=== PATIENT | male | born 1985 | race Caucasian/White ===

== ENCOUNTER 2025-01-27 14:21 | Emergency (ER) | payer BC, SELFPAY ==
[2025-01-27 14:23] VITALS: BP 146/91; PULSE 110; RESP 19; TEMP 36.8; O2SAT 99; BMI 31.1
[2025-01-27 16:30] VITALS: BP 150/91; PULSE 91; RESP 18; O2SAT 100
[2025-01-27 16:33] LABS: Mucous, Urine 0 SEEN /hpf (<or=2+); Red Blood Cells-Urine 0 SEEN /hpf (0-5)
[2025-01-27 16:36] LABS: Color, Urine Straw (Yellow); Glucose, Dipstick Normal (Normal); Ketone-Dipstick Negative (Negative); Leukocyte Esterase-Dipstick Negative /ul (Negative); Nitrite-Dipstick Negative (Negative); Occult Blood-Urine Negative /ul (Negative); Protein-Dipstick Negative (Negative); Specific Gravity, Urine 1.010 (1.002-1.030); Urine Bilirubin Dipstick Negative (Negative)
[2025-01-27 16:52] LABS: Hematocrit 49.9 % (40-54); Hemoglobin 16.9 g/dL (13.0-16.5); Immature Granulocytes Count 0.020 X10^3/uL (0.0-0.0); Mean Corp Hgb Conc 33.9 g/dL (32-36); Mean Corpuscular Volume 90.9 fL (80-94); Mean Platelet Vol. 9.4 fl (6.2-12.0); NRBC Flagged by Analyzer 0 % (0-5); POSITIVE DIFFERENTIAL YES; Platelet Count 238 K/mm3 (150-450); RBC Distribution Width CV 13.0 % (11.6-14.6); RBC Distribution Width SD 43.8 fl (35.1-43.9); Red Blood Count 5.49 M/mm3 (4.6-6.2); White Blood Count 8.6 K/mm3 (4.4-11.0)
--- NOTE | 2025-01-27 16:56 | ED.VIS.GI ---
HPI HPI - GI History of Present Illness Chief Complaint: Abd Pain Informant: patient Narrative Narrative: Patient is a 39-year-old male with no segment past medical history presenting with worsening right lower quadrant abdominal pain. 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 He notes the pain started around 730 or 8 AM. Initially was in his suprapubic region but is now more in the right lower quadrant. He started have a bowel movement but is not able to have 1. Denies any nausea or vomiting but feels that he could throw up. Denies any urinary symptoms. Denies any pain going to his groin or his testicles. Has not eaten much today and therefore has not had much urine output. States the pain is constant and is fluctuate intensity. Never had any like this before. Has a history of any abdominal surgeries. States his son threw up over the weekend but he attributed to eating too much junk food and is otherwise been fine. No other sick contacts reported. No fevers reported. No other complaints or concerns at this time [facility] Medical History Depression Allergy/AdvReac Type Severity Reaction Status Date / Time No Known Allergies Allergy Verified 01/27/25 14:24 Social History Smoking Status: Never smoker ROS ROS ED Constitutional Constitutional ED: Denies chills or fever(s) Cardiovascular Cardiovascular: Denies chest pain Gastrointestinal Gastrointestinal: Reports abdominal pain; Denies constipation, diarrhea, melena, nausea or vomiting Genitourinary Genitourinary ED: Denies dysuria, hematuria or urinary frequency Musculoskeletal Musculoskeletal: Denies arthralgias, back pain or myalgias Integumentary Denies rash Hematologic/Lymphatic Hematologic/Lymphatic: Denies easy bleeding or easy bruising EXAM Physical Exam Const Vital Signs: 01/27/25 14:23 01/27/25 16:30 01/27/25 18:12 Temperature 98.3 F Temperature Source Oral Pulse Rate 110 H 91 Respiratory Rate 19 H 18 Blood Pressure 146/91 H 150/91 H 152/82 H Blood Pressure Mean 109 110 105 Pulse Ox 99 100 Oxygen Delivery Method Room Air Room Air Positive well nourished and well developed General Appearance ED: well developed and NAD; Negative for pallor HEENT Reports moist mucous membranes Eyes General Eye ED: Negative for scleral icterus Neck supple Resp normal respiratory effort and clear to auscultation bilaterally Cardio regular rate, regular rhythm and no murmurs GI non-distended Auscultation: normoactive bowel sounds Palpation: soft and tender RLQ and suprapubic; Negative for guarding, rigid, hernia or mass Back/Spine no CVA tenderness Extremity full ROM General Extremety ED: Negative for edema General Extremity: Negative for edema Neuro moves all extremities Motor Exam: general weakness Psych mental status grossly normal and thought process normal Skin no wounds General Skin Exam: Negative for jaundice or pallor MDM MDM MDM Narrative Medical decision making narrative: Patient is a 39 year old male presenting with lower abdominal pain that started today. It is more in the suprapubic/right lower quadrant. No fevers reported. Came in for further evaluation. No history of any abdominal surgeries. Differential includes not limited to acute appendicitis, renal colic, urinary tract infection, pyelonephritis, small bowel obstruction, diverticulitis and colitis. CBC, CMP, lipase and urinalysis largely unremarkable. CT of the abdomen pelvis does not show any acute process to explain his symptoms. There is scattered subcentimeter hypodensities throughout the liver and spleen which are nonspecific and hepatomegaly to 19 centimeters. He has a borderline enlarged spleen. He does not have a monocyte predominance and lower suspicion for acute mononucleosis especially does not report any fever gland 1 day of symptoms. He does have scattered colonic diverticulosis with no acute diverticulitis. His appendix is normal. Patient is informed that his workup is largely unremarkable as far as the cause of his pain. The patient is informed of his abnormal findings on his liver and spleen and given GI follow-up for 2 days from now. Counseled that this needs further evaluation to ensure is not a more severe systemic process or even malignancy. He verbalizes agreement understand this plan. Discharged home. Counseled alternate ibuprofen and Tylenol as needed for pain. Given return precautions. Discharged home in stable and improved condition. Lab Data Attestation: I reviewed the patient's lab results. Labs: Laboratory Results - last 24 hr 01/27/25 01/27/25 16:25 16:30 WBC 8.6 RBC 5.49 Hgb 16.9 H Hct 49.9 MCV 90.9 MCH 30.8 MCHC 33.9 RDW Std Deviation 43.8 RDW Coeff of Chacorta 13.0 Plt Count 238 MPV 9.4 Immature Gran % (Auto) 0.200 Neut % (Auto) 90.4 H Lymph % (Auto) 3.5 L [place]ion % (Auto) 4.2 Eos % (Auto) 1.2 Baso % (Auto) 0.5 Absolute Neuts (auto) 7.7 Absolute Lymphs (auto) 0.30 L Nucleated RBC % 0 Sodium 137 Potassium 3.9 Chloride 101 Carbon Dioxide 23.1 Anion Gap 13 BUN 16 Creatinine 0.95 Estim Creat Clear Calc 152.24 Est GFR (MDRD) Non-Af 106 BUN/Creatinine Ratio 16.4 Glucose 89 Calcium 9.4 Total Bilirubin 0.76 AST 27 ALT 39 Alkaline Phosphatase 97 Total Protein 7.6 Albumin 4.6 Globulin 3.0 Albumin/Globulin Ratio 1.6 Lipase 17 Urine Color Straw Urine Clarity Clear Urine pH 6.0 Ur Specific Drake 1.010 Urine Protein Negative Urine Glucose (UA) Normal Urine Ketones Negative Urine Occult Blood Negative Urine Nitrite Negative Urine Bilirubin Negative Urine Urobilinogen Normal Ur Leukocyte Esterase Negative Urine RBC 0 SEEN Urine WBC 0-5 SEEN Ur Squamous Epith Cells 0-5 SEEN Urine Bacteria 1+ Urine Mucus 0 SEEN Radiography Diagnostic Testing: Clinical Impression(s) from Imaging Studies Abdomen/Pelvis CT 01/27/25 17:17 IMPRESSION: Scattered subcentimeter hypodensities throughout the liver and spleen, nonspecific. Hepatomegaly to 19 cm. Borderline enlarged spleen Colonic diverticulosis without acute diverticulitis. No bowel obstruction. Normal appendix. [id number] Dis[facility] Triage Chief Complaint: Abd Pain ED Provider: Joyce Dobbins Dx/Rx/DC Orders Clinical Impression: Abdominal pain, acute, right lower quadrant, Abnormal abdominal CT scan Instructions: ED Abdominal Pain Unkn Cause Male... Primary Care Provider: Cahty Gonzalez Referrals: Robinson Currie DO [Med Staff - Active Staff] - Cathy Gonzalez PA-C [Primary Care Provider] - Activity Restrictions/Additional Instructions: Your workup for the cause of your right lower swab transabdominal pain was inconclusive. No findings of appendicitis, urinary tract infection, kidney stones or other cause was found. At this time I feel that you are stable for outpatient follow-up. Your CT did incidentally find abnormality to your liver and spleen. You been given follow-up appointment with the GI office on January 29 at 11:30 AM. If you have worsening symptoms or further concerns in the meantime please return to the emergency room. Print Language: Greek Disposition Disposition: Home, Self Care
[2025-01-27] MEDS: 0.9% Normal Saline (1000mL) 1,000 ML 999 ML IV (16:58)
--- NOTE | 2025-01-27 17:17 | CT_ITS ---
PROCEDURE: ABDOMEN/PELVIS W IV CONT ONLY 01/27/2025 REASON FOR EXAM: RLQ ABD PAIN TECHNIQUE: Procedure Code: [id number] Modality: CT Procedure: ABDOMEN/PELVIS W IV CONT ONLY Coronal and Sagittal reconstruction series were provided. CONTRAST: 100 mL of Isovue 370 One or more dose reduction techniques were used (e.g., Automated exposure control, adjustment of the mA and/or kV according to patient size, use of iterative reconstruction technique. RADIATION DOSE SUMMARY: DLP: 1209 mGycm COMPARISON: None FINDINGS: Limited sections of the lung bases demonstrate no focal pulmonary mass or consolidations. The liver, spleen, pancreas, and both adrenal glands demonstrate no acute findings. Scattered subcentimeter hypodensities throughout the liver and spleen, nonspecific. Hepatomegaly to 19 cm. Borderline enlarged spleen The gallbladder is unremarkable. The stomach is unremarkable. The small bowel loops are not dilated. The appendix is normal. No colonic obstruction. Colonic diverticulosis without acute diverticulitis. There is no free air or significant free fluid. Scattered subcentimeter hypodensities throughout the kidney, too small to accurately characterize. No obstructive uropathy. No hydronephrosis. The urinary bladder is distended. The pelvic structures are intact. There is no solid pelvic mass. No significant lymphadenopathy. The aorta and IVC demonstrate no acute findings. Visualized osseous structures demonstrate no acute abnormality. CT/Abdomen/Pelvis W IV Cont ONLY IMPRESSION: Scattered subcentimeter hypodensities throughout the liver and spleen, nonspeci fic. Hepatomegaly to 19 cm. Borderline enlarged spleen Colonic diverticulosis without acute diverticulitis. No bowel obstruction. No rmal appendix. Reading Location: [id number]
[2025-01-27 17:28] LABS: AST(SGOT) 27 U/L (<=37); Alanine Aminotransfer ALT/SGPT 39 U/L (<=46); Albumin, Serum 4.6 g/dL (3.5-5.0); Alkaline Phosphatase 97 U/L (40-129); Anion Gap 13 (5-15); BUN 16 mg/dL (4-19); BUN/Creat Ratio 16.4 RATIO (10-20); Calcium,Total 9.4 mg/dL (7.6-11.0); Carbon Dioxide 23.1 mmol/L (21.0-32.0); Chloride 101 mmol/L (98-108); Estimated Creatinine Clearance 152.24 ml/min (50-250); Globulin 3.0 g/dL (2.2-4.2); Glucose 89 mg/dL (70-99); Lipase 17 U/L (13-75); Potassium 3.9 mmol/L (3.3-5.1)
[2025-01-27 17:48] LABS: Squamous Epithelial Cells - UA 0-5 SEEN /hpf (0-5)
[2025-01-27 18:12] VITALS: BP 152/82
[2025-01-27 20:10] VITALS: BP 146/95; PULSE 77; RESP 16; TEMP 36.6; O2SAT 98
== END 2025-01-27 20:11 | disposition home or self-care (01) ==
PROVIDERS: Emergency Provider Emergency Medicine; PCP Family Medicine; Visit Provider Emergency Medicine
DX: R10.31 Right lower quadrant pain (principal); K57.30 Diverticulosis of large intestine without perforation or abscess without bleeding; R16.2 Hepatomegaly with splenomegaly, not elsewhere classified
CPT/HCPCS: 74177; 80053; 81001; 83690; 85025; 96361; 96374; 96375; 99282; Q9967; J2405

== ENCOUNTER → 2025-02-11 | Outpatient (CLI) | payer BC, SELFPAY ==
--- NOTE | 2025-02-11 08:50 | US_ITS ---
PROCEDURE: US ABD LIMITED W/ ELASTOGRAPHY REASON FOR EXAM: HEPATOMEGALY COMPARISON: Abdominal CT 01/27/2025. TECHNIQUE: Procedure Code: [id number] Modality: US Procedure: ABD LIMITED W/ ELASTOGRAPHY Right upper quadrant abdominal ultrasound. [employer] [employer] ElastQ Imaging shear wave elastography for non-invasive assessment of liver tissue stiffness. Radha EPIQ Elite. FINDINGS: LIVER: Enlarged measuring roughly 20 cm in length. Somewhat heterogeneous parenchymal echotexture likely corresponding to the aforementioned numerous tiny hypoechoic lesions throughout the liver seen on CT, although a discrete mass lesion is not well appreciated on this exam. Elastography: EQI Med: 5.9 kPa EQI Med Yaron: 1.39 m/s IQR/Med: 17.4 %* GALLBLADDER: Normal. No stones, sludge, wall thickening or tenderness. COMMON BILE DUCT: Normal measuring up to 0.4 cm diameter. PANCREAS: Visualized portions are sonographically unremarkable. SPLEEN: Enlarged measuring 12.7 x 6.2 x 6.2 cm. Two small hypoechoic foci in the spleen, measuring up to roughly 1 cm in size, nonspecific. No right upper quadrant ascites. Visualized right kidney appears normal in size and cortical thickness, without hydronephrosis. Simple appearing right renal cyst measuring up to 1.6 cm. US/ABD Limited w/ Elastography IMPRESSION: Moderate to severe hepatic fibrosis. Metavir score F2-F3. Hepatosplenomegaly. Redemonstrated multiple indeterminate small hypoechoic les ions scattered throughout the liver and spleen, as demonstrated on previous abdominal CT. This can be seen with granulomatous dise ases, or atypical infections such as mycobacterial or fungal etiologies. Metastases or hematologic malignancy such as leukemia/lym phoma can also have this appearance. Reference Values: SRU <1.37 m/s (5.7kPa): No to mild fibrosis 1.37 m/s - 2.2 m/s: Moderate to severe fibrosis >2.2 m/s (15kPa): Significant fibrosis / cirrhosis METAVIR Score F2 or higher: 1.34 m/s (5.7kPa) F3 or higher: 1.55 m/s (7.3kPa) F4: 1.80 m/s (10kPa) * If the IQR/Med is >30%, the variance in the measurements is a large and the a ccuracy of the measurement may be in question. Reading Location: [id number]
--- NOTE | 2025-02-11 08:50 | US_ITS ---
PROCEDURE: US ABD LIMITED W/ ELASTOGRAPHY REASON FOR EXAM: HEPATOMEGALY COMPARISON: Abdominal CT 01/27/2025. TECHNIQUE: Procedure Code: [id number] Modality: US Procedure: ABD LIMITED W/ ELASTOGRAPHY Right upper quadrant abdominal ultrasound. [facility] ElastQ Imaging shear wave elastography for non-invasive assessment of liver tissue stiffness. Radha EPIQ Elite. FINDINGS: LIVER: Enlarged measuring roughly 20 cm in length. Somewhat heterogeneous parenchymal echotexture likely corresponding to the aforementioned numerous tiny hypoechoic lesions throughout the liver seen on CT, although a discrete mass lesion is not well appreciated on this exam. Elastography: EQI Med: 5.9 kPa EQI Med Yaron: 1.39 m/s IQR/Med: 17.4 %* GALLBLADDER: Normal. No stones, sludge, wall thickening or tenderness. COMMON BILE DUCT: Normal measuring up to 0.4 cm diameter. PANCREAS: Visualized portions are sonographically unremarkable. SPLEEN: Enlarged measuring 12.7 x 6.2 x 6.2 cm. Two small hypoechoic foci in the spleen, measuring up to roughly 1 cm in size, nonspecific. No right upper quadrant ascites. Visualized right kidney appears normal in size and cortical thickness, without hydronephrosis. Simple appearing right renal cyst measuring up to 1.6 cm. US/ABD Limited w/ Elastography IMPRESSION: Moderate to severe hepatic fibrosis. Metavir score F2-F3. Hepatosplenomegaly. Redemonstrated multiple indeterminate small hypoechoic les ions scattered throughout the liver and spleen, as demonstrated on previous abdominal CT. This can be seen with granulomatous dise ases, or atypical infections such as mycobacterial or fungal etiologies. Metastases or hematologic malignancy such as leukemia/lym phoma can also have this appearance. Reference Values: SRU <1.37 m/s (5.7kPa): No to mild fibrosis 1.37 m/s - 2.2 m/s: Moderate to severe fibrosis >2.2 m/s (15kPa): Significant fibrosis / cirrhosis METAVIR Score F2 or higher: 1.34 m/s (5.7kPa) F3 or higher: 1.55 m/s (7.3kPa) F4: 1.80 m/s (10kPa) * If the IQR/Med is >30%, the variance in the measurements is a large and the a ccuracy of the measurement may be in question. Reading Location: [id number]
== END | disposition home or self-care (01) ==
LOC: US 08:41
PROVIDERS: PCP Family Medicine; Referring Provider Nurse Practitioner Acute Care; Visit Provider Nurse Practitioner Acute Care
DX: R16.0 Hepatomegaly, not elsewhere classified (principal); R10.9 Unspecified abdominal pain
CPT/HCPCS: 76705; 76981

== ENCOUNTER 2025-04-28 10:54 | Day surgery (SDC) | payer BC, SELFPAY ==
[2025-04-28] VITALS (10 sets, daily range): BP systolic 115–134; BP diastolic 81–97; PULSE 65–92; RESP 16; TEMP 36.1–36.8; O2SAT 97–100; BMI 28.9
[2025-04-28] MEDS: Lactated Ringers 1,000 ML 15 ML IV (11:21)
--- NOTE | 2025-04-28 11:54 | PRE.ANES_ITS ---
ASA Classification* ASA Classification ASA Classification: 1 Assessment & Plan Anesthesia* Anesthesia Assessment Anesthesia Assessment: Discussed sedation and/or anesthesia options, risks, benefits, and alternatives with patient/parents/legal guardian/POA. Questions invited. The patient/parents/legal guardian/POA seems to understand and agrees to proceed with anesthesia plan. Reviewed the physical assessment, medical history, allergy history and patient home medications list prior to surgery/procedure/anesthetic and documented any changes. Performed airway and anesthesia risk assessments. Anesthesia Type Anesthesia Type: MAC History Source History Obtained from:: Patient and Chart Anesthesia Focused Assessment* Temperature: 98.3 F Pulse Rate: 70 Blood Pressure: 125/85 Respiratory Rate: 16 Pulse Ox: 100 Oxygen Delivery Method: Room Air Airway Assessment Mouth opens: >3 cm Mallampati Score: II Teeth Condition: Intact Neck Range of motion (ROM): Full ROM Labs Anesthesia Preop lab: CBC WBC, (4.4-11.0) 8.6 K/mm3 01/27/25, 16:25 RBC, (4.6-6.2) 5.49 M/mm3 01/27/25, 16:25 Hgb, (13.0-16.5) 16.9 g/dL H 01/27/25, 16:25 Hct, (40-54) 49.9 % 01/27/25, 16:25 Plt Count, (150-450) 238 K/mm3 01/27/25, 16:25 CHEMISTRY Potassium, (3.3-5.1) 3.9 mmol/L 01/27/25, 16:25 Sodium, (133-145) 137 mmol/L 01/27/25, 16:25 BUN, (4-19) 16 mg/dL 01/27/25, 16:25 Creatinine, (0.70-1.20) 0.95 mg/dL 01/27/25, 16:25 Glucose, (70-99) 89 mg/dL 01/27/25, 16:25 COAG Pre-Assessment Diagnosis/Proposed Procedure Planned Operative Procedure(s): egd Anesthesia History Anesthesia History - processor inspector: Anesthesia History - processor inspector Hx Hospitalization No 04/27/25 08:28 Any Problems With Anesthesia No 04/27/25 08:28 Cholinesterase deficiency No 04/27/25 08:28 You/Your Family Experience No 04/27/25 08:28 fever (hyperthermia) with Relationship Recent Exposure to Contagious No 04/28/25 11:13 Disease Does patient have nerve No 04/27/25 08:28 stimulator Patient instructed to have device shut off --Does patient have Pacemaker No 04/28/25 11:13 or ICD? When Was Last Pacemaker Check QUESTION #4 FULL TEXT: You/Your Family Experience fever (hyperthermia) with Anesthesia Last Oral Intake Last Oral intake: Last Oral Intake NPO since 08:00 04/28/25 11:13 Meds taken in AM with sips of Yes 04/28/25 11:13 water? Meds patient instructed to SEE MED LIST 04/28/25 11:13 take am of surgery PONV PONV - processor inspector: PONV - processor inspector Female No 04/27/25 08:28 HX of Motion Sickness No 04/27/25 08:28 HX of N/V After Surgery No 04/27/25 08:28 Non-Smoker Yes 04/27/25 08:28 Duration of Surgery greater No 04/27/25 08:28 than 60 minutes Number of Risk Factors 1 04/27/25 08:28 PONV Score Low Risk 04/27/25 08:28 Height & Weight Height & Weight: Anesthesia: Height & Weight Height 6 ft 5 in 04/28/25 11:13 Weight: 110.677 kg 04/28/25 11:13 Body Mass Index (BMI) 28.9 04/28/25 11:13 Respiratory Assessment Respiratory Assessment - processor inspector: Respiratory Tract Infection Hx - processor inspector Hx Respiratory Tract Infection No 04/27/25 08:28 STOP Sleep Apnea STOP Sleep Apnea - processor inspector: STOP Sleep Apnea - processor inspector Hx Hypertension No 04/27/25 08:28 Hx Sleep Apnea No 04/27/25 08:28 CPAP BIPAP Do you snore loudly (louder No 04/27/25 08:28 than talking or can be heard Do you often feel tired/ No 04/27/25 08:28 fatigued/ sleepy during daytime? Has anyone observed you stop No 04/27/25 08:28 breathing during sleep? STOP Results Negative 04/27/25 08:28 QUESTION #5 FULL TEXT : Do you snore loudly (louder than talking or can be heard through closed doors)? 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 Specify any problems Hx of Preganancy in last 3 N/A 04/27/25 08:28 Months Nurse Filling Out Transfusion NBUCHER 04/27/25 08:28 & Questions: Date: 04/27/25 04/27/25 08:28 Time: 08:28 04/27/25 08:28 Patient unable to answer at this time (ie. confused, unrespo /Reproduction History /Reproductive History - processor inspector: /Reproductive Hx- processor inspector Hx Now No 04/27/25 08:28 Gestational Age (in weeks): EDC: Hx Hx Para Hx Section SAB No 04/27/25 08:28 Does the father of the baby or his family experience fever w Father of the baby Malignant Hypertension history comment Active Medications Active Medications: Current Medications Generic Name Dose Route Start Last Admin Trade Name Freq PRN Reason Stop Dose Admin Lactated Ringer's 1,000 mls @ 15 mls/hr 04/28/25 11:15 04/28/25 11:21 IV 15 mls/hr .Q48H JESSICA Administration PFSH Medical History Wears contact lenses Wears glasses Non-smoker Depression Home Medications ?Medication ?Instructions ?Recorded ?Last Taken ?Type bupropion HCl 300 mg 24 hr tablet, 300 mg PO QAM 01/2904/28/25 History extended release (Wellbutrin XL) Allergy/AdvReac Type Severity Reaction Status Date / Time No Known Allergies Allergy Verified 04/27/25 08:28 Surgical History History of dental surgery History of wisdom tooth extraction Social History Smoking Status: Never smoker Review of Systems (Anesthesia) ROS Narrative System reviewed and no additional complaints, except as documented.
--- NOTE | 2025-04-28 12:00 | EGD_PTH ---
PATIENT: IVAN ECHOLS LOC: EN U#:[id number] AGE/SX: 39/M ROOM: RE04/28/[address]: Dr. Robinson Currie DO : 1985 BED: DIS: 04/28/2025 SPEC #: [id number] RECD: 04/28/25 13:16 STATUS: ANITA REJessy #: [id number] MARZENA: 04/28/25 12:[address]: Robinson Currie DEPT: SURGICAL PATHOLOGY RECD BY: Nicole Rodriguez ENTERED: 04/29/25 06:38 SP TYPE: EGD BIOPSY RAE DR: Cathy Gonzalez PA-C Tissues: A - Duodenum, NOS B - Gastric mucous membrane C - Esophagus, NOS Procedures: Surgery Specimen Level IV HEADER OPERATION: EGD with biopsy PRE-OP DIAGNOSIS: Hepatic granuloma, right flank pain, hepatomegaly TISSUE SUBMITTED: A- Duodenum biopsy, B- Gastric body biopsy, C- Distal esophagus biopsy MICROSCOPIC DIAGNOSIS A. Small intestine, duodenum, biopsy: - Normal villous architecture with Ortiz gland hyperplasia. - Negative for increased intraepithelial lymphocytes. B. Stomach, body, biopsy: - Oxyntic mucosa with no specific pathologic change. - Negative for Helicobacter-like organisms (H&E). C. Esophagus, distal, biopsy: - Squamous mucosa with mild reactive changes and rare eosinophils. - Columnar mucosa Negative for goblet cell metaplasia. MICROSCOPIC DESCRIPTION Slides are reviewed. GROSS DESCRIPTION A. Received in fixative is one container labeled with the patient's name and designated Duodenum biopsy. The specimen consists of two irregular fragments of stone tissue, each measuring 0.6 cm. The specimen is totally submitted in one cassette. B. Received in fixative is one container labeled with the patient's name and designated Gastric body biopsy. The specimen consists of two irregular fragments of stone tissue that measure 0.4 and 0.7 cm. The specimen is totally submitted in one cassette. C. Received in fixative is one container labeled with the patient's name and designated Distal esophagus biopsy. The specimen consists of two irregular fragments of stone tissue, each measuring 0.4 cm. The specimen is totally submitted in one cassette. RI 04/28/2025 CPT:18486v4
--- NOTE | 2025-04-28 12:19 | PCM.HP.STD ---
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 Sometimes he states related to food. CT abdomen does not show any significant bowel pathology but colonic diverticulosis. Normal appendix. No bowel obstruction. Social history: Patient started drinking alcohol in her 20s light on weekends and once in a while vodka sometimes 2-3 shots of vodka. It got heavy drinking at the age of 25-26 with 30 beers every day for 5 years. Then he cut down to 12-20. On weekends with some mixed alcohol drink leg left foot about 5 to 6% of alcohol. Currently drinks total 12 to 15, canes of 12 ounce beer on weekends Denies substance use. Denies smoking Family history: No first-degree family history of liver or gallbladder disease or bowel. Denies autoimmune disease in first-degree family related [facility] Medical History Wears contact lenses Wears glasses Non-smoker Depression Home Medications ?Medication ?Instructions ?Recorded ?Last Taken ?Type bupropion HCl 300 mg 24 hr tablet, 300 mg PO QAM 01/29/25 04/28/25 History extended release (Wellbutrin XL) Allergy/AdvReac Type Severity Reaction Status Date / Time No Known Allergies Allergy Verified 04/27/25 08:28 Surgical History History of dental surgery History of wisdom tooth extraction Social History Smoking Status: Never smoker ROS Constitutional Constitutional: Denies fatigue, fever(s), poor appetite, weight gain or weight loss Gastrointestinal Gastrointestinal: Denies belching, bloating, change in bowel habits, change in stool character, chewing difficulty, coffee ground emesis, constipation, cramping, diarrhea, dyspepsia, dysphagia, early satiety, excessive flatus, fecal incontinence, heartburn, hematemesis, hematochezia, hemorrhoids, loose stools, melena, nausea, odynophagia, rectal bleeding, tenesmus, vomiting or weight changes Vital Signs Vital Signs Vital Signs: 04/28/25 11:13 04/28/25 11:13 04/28/25 11:17 Temperature 98.3 F Temperature Source Temporal Pulse Rate 70 Respiratory Rate 16 Respiratory Pattern Normal Blood Pressure 125/85 H Blood Pressure Mean 98 Blood Pressure Source Monitor Blood Pressure Position Semi-Fowlers Blood Pressure Location Left Arm Baseline BP 125/85 Pulse Ox 100 Oxygen Delivery Method Room Air 04/28/25 11:55 Temperature 98.3 F Temperature Source Pulse Rate 70 Respiratory Rate 16 Respiratory Pattern Blood Pressure 125/85 H Blood Pressure Mean Blood Pressure Source Blood Pressure Position Blood Pressure Location Baseline BP Pulse Ox 100 Oxygen Delivery Method Room Air Weight Weight: 244 lb Body Mass Index (BMI) 28.9 Physical Exam Const alert, oriented x3, no apparent distress and healthy appearing General Appearance: cooperative GI normal to inspection, nondistended, normoactive bowel sounds, soft to palpation, non-tender and non-distended Percussion: normal to percussion Rectal Exam: deferred Assessment & Plan Assessment/Plan (1) Hepatic granuloma: (2) Right flank pain: (3) Hepatomegaly: PLAN: Assessment and Plan Assessment and Plan (1) Hepatomegaly: Status: Acute Plan: Patient was initially seen on 01/1225 by Denise Haney for hepatomegaly. Serum transaminases, ALP normal. Albumin globulin and A/G ratio normal. Lipase normal. UA is negative. CT abdomen/splurges with IV contrast from 01/27 reviewed. Liver enlarged 19 cm, with scattered subcentimeter hypodensities throughout the liver and spleen, nonspecific. Spleen borderline enlarged Subsequently patient had abdomen ultrasound with elastography which shows liver 20 cm with heterogenous parenchymal echotexture of numerous tiny hypoechoic lesions, previously seen on CT without a discrete mass lesion. Median liver stiffness 5.9 kPa, median velocity 1.39 m/s. CBD normal. Pancreas normal. Spleen 12.7 x 6.2 x 6.2 cm; borderline enlarged or upper limit of normal. 2 small hyperechoic foci in the spleen measuring roughly up to 1 cm in size nonspecific Overall, multiple intermittent small hypoechoic lesions scattered throughout the liver and spleen, similarly demonstrated previous CT scan raising suspicion of chronic granulomatous disease or atypical infection such as mycobacterial or fungal etiologies. It also raises suspicion of lymphoma but patient does not have palpable cervical or axillary lymph nodes. Plan 1. EGD to rule out portal hypertension changes in esophagus/stomach 2. Refer to hematology Dr. Webb for hematological causes of hepatosplenomegaly 3. Referred to ID to rule out chronic infectious disease including mycobacterial fungal or atypical etiologies. Patient did eat red meats beef, Ham but lesions does not look typical of Hydratid cyst 4. Patient drinks heavily beer 12-15, 12 ounce beer on weekends but previously was drinking up to 20 beer maximum couple months ago. Advised quitting alcohol. Serum ELF test ordered 5. Rule out chronic parameters disease including iron overload, metabolic disease or GRANULOMAOUS disase 6. Triple phase CT scan AFP ordered 7. Alcoholic liver disease Follow-up in 3 to 4 months (2) Hepatic granuloma: Status: Acute Orders: Orders CT Abd/Pelvis W/WO Contrast 1 Month R10.31 - Right lower quadrant pain, R10.9 - Unspecified abdominal pain, R16.0 - Hepatomegaly, not elsewhere classified AFP, Tumor Marker 1 Month R10.31 - Right lower quadrant pain, R10.9 - Unspecified abdominal pain, R16.0 - Hepatomegaly, not elsewhere classified Anti-Smooth Muscle ABS 1 Month R10.31 - Right lower quadrant pain, R10.9 - Unspecified abdominal pain, R16.0 - Hepatomegaly, not elsewhere classified Anti-Mitochondrial AB 1 Month R10.31 - Right lower quadrant pain, R10.9 - Unspecified abdominal pain, R16.0 - Hepatomegaly, not elsewhere classified CBC W/Diff, Automated 1 Month R10.31 - Right lower quadrant pain, R10.9 - Unspecified abdominal pain, R16.0 - Hepatomegaly, not elsewhere classified Comprehensive Metabolic Profil 1 Month R10.31 - Right lower quadrant pain, R10.9 - Unspecified abdominal pain, R16.0 - Hepatomegaly, not elsewhere classified Ceruloplasmin 1 Month R10.31 - Right lower quadrant pain, R10.9 - Unspecified abdominal pain, R16.0 - Hepatomegaly, not elsewhere classified CRP 1 Month R10.31 - Right lower quadrant pain, R10.9 - Unspecified abdominal pain, R16.0 - Hepatomegaly, not elsewhere classified Lipid Profile 1 Month R10.31 - Right lower quadrant pain, R10.9 - Unspecified abdominal pain, R16.0 - Hepatomegaly, not elsewhere classified Hemoglobin A1c 1 Month R10.31 - Right lower quadrant pain, R10.9 - Unspecified abdominal pain, R16.0 - Hepatomegaly, not elsewhere classified Hepatitis Panel Acute 1 Month R10.31 - Right lower quadrant pain, R10.9 - Unspecified abdominal pain, R16.0 - Hepatomegaly, not elsewhere classified Prothrombin Time w/INR 1 Month R10.31 - Right lower quadrant pain, R10.9 - Unspecified abdominal pain, R16.0 - Hepatomegaly, not elsewhere classified Transferrin 1 Month R10.31 - Right lower quadrant pain, R10.9 - Unspecified abdominal pain, R16.0 - Hepatomegaly, not elsewhere classified Iron+Iron Binding Capacity 1 Month R10.31 - Right lower quadrant pain, R10.9 - Unspecified abdominal pain, R16.0 - Hepatomegaly, not elsewhere classified JACQUI w/ Reflex Mult Confirm 1 Month R10.31 - Right lower quadrant pain, R10.9 - Unspecified abdominal pain, R16.0 - Hepatomegaly, not elsewhere classified Bilirubin, Direct 1 Month R10.31 - Right lower quadrant pain, R10.9 - Unspecified abdominal pain, R16.0 - Hepatomegaly, not elsewhere classified CPK Total, Creatine Kinase 1 Month R10.31 - Right lower quadrant pain, R10.9 - Unspecified abdominal pain, R16.0 - Hepatomegaly, not elsewhere classified JOSE + Protein Elect, Serum 1 Month R10.31 - Right lower quadrant pain, R10.9 - Unspecified abdominal pain, R16.0 - Hepatomegaly, not elsewhere classified GGTP 1 Month R10.31 - Right lower quadrant pain, R10.9 - Unspecified abdominal pain, R16.0 - Hepatomegaly, not elsewhere classified [place] Lambda Light Chains 1 Month R10.31 - Right lower quadrant pain, R10.9 - Unspecified abdominal pain, R16.0 - Hepatomegaly, not elsewhere classified [facility] Misc. 1 Month R10.31 - Right lower quadrant pain, R10.9 - Unspecified abdominal pain, R16.0 - Hepatomegaly, not elsewhere classified Thyroid Stim Hormone (TSH) 1 Month R10.31 - Right lower quadrant pain, R10.9 - Unspecified abdominal pain, R16.0 - Hepatomegaly, not elsewhere classified Hepatitis B Surface Antibody 1 Month R10.31 - Right lower quadrant pain, R10.9 - Unspecified abdominal pain, R16.0 - Hepatomegaly, not elsewhere classified Ferritin 1 Month R10.9 - Unspecified abdominal pain, R16.0 - Hepatomegaly, not elsewhere classified Chest PA and Lateral 1 Month K75.3 - Granulomatous hepatitis, not elsewhere classified, R10.9 - Unspecified abdominal pain, R16.0 - Hepatomegaly, not elsewhere classified ]
--- NOTE | 2025-04-28 13:05 | OP.EGD_ITS ---
Patient Name: Zion Domingo Procedure Date: 04/28/2025 12:45 PM Date of : 1985 Age: 39 Procedure: Upper GI endoscopy Indications: Epigastric abdominal pain, Functional Dyspepsia, Heartburn Providers: Robinson Currie DO Referring MD: Cathy Gonzalez Medicines: Monitored Anesthesia Care Patient Profile: This is a 39 year old male. Refer to note in patient chart for documentation of history and physical. Patient has symptoms of chronic abdominal cramping, acute epigastric abdominal pain, acute dyspepsia, chronic heartburn and chronic nausea. Complications: No immediate complications. Procedure: Pre-Anesthesia Assessment: - Prior to the procedure, a History and Physical was performed, and patient medications and allergies were reviewed. The patient is competent. The risks and benefits of the procedure and the sedation options and risks were discussed with the patient. All questions were answered and informed consent was obtained. Patient identification and proposed procedure were verified by the physician in the pre-procedure area. Mental Status Examination: alert and oriented. Airway Examination: normal oropharyngeal airway and neck mobility. Respiratory Examination: clear to auscultation. CV Examination: normal. Prophylactic Antibiotics: The patient does not require prophylactic antibiotics. Prior Anticoagulants: The patient has taken no anticoagulant or antiplatelet agents. ASA Grade Assessment: II - A patient with mild systemic disease. After reviewing the risks and benefits, the patient was deemed in satisfactory condition to undergo the procedure. The anesthesia plan was to use monitored anesthesia care (MAC). Immediately prior to administration of medications, the patient was re-assessed for adequacy to receive sedatives. The heart rate, respiratory rate, oxygen saturations, blood pressure, adequacy of pulmonary ventilation, and response to care were monitored throughout the procedure. The physical status of the patient was re-assessed after the procedure. After obtaining informed consent, the endoscope was passed under direct vision. Throughout the procedure, the patient's blood pressure, pulse, and oxygen saturations were monitored continuously. The gastroscope was introduced through the mouth, and advanced to the third part of the duodenum. Small bowel enteroscopy was deemed necessary. The upper GI endoscopy was accomplished without difficulty. The patient tolerated the procedure well. Scope In: 12:56:15 PM Scope Out: 1:01:23 PM Total Procedure Duration Time 0 hours 5 minutes 8 seconds Findings: LA Grade A (one or more mucosal breaks less than 5 mm, not extending between tops of 2 mucosal folds) esophagitis with no bleeding was found 37 to 40 cm from the incisors. Biopsies were taken with a cold forceps for histology. Verification of patient identification for the specimen was done. Estimated blood loss was minimal. Patchy mildly erythematous mucosa without bleeding was found in the gastric body. Biopsies were taken with a cold forceps for histology. Biopsies were taken with a cold forceps for Helicobacter pylori testing. Verification of patient identification for the specimen was done. Estimated blood loss was minimal. Patchy mildly erythematous mucosa without active bleeding and with no stigmata of bleeding was found in the entire duodenum. Biopsies were taken with a cold forceps for histology. Verification of patient identification for the specimen was done. Estimated blood loss was minimal. Impression: - LA Grade A reflux esophagitis with no bleeding. Biopsied. - Erythematous mucosa in the gastric body. Biopsied. - Erythematous duodenopathy. Biopsied. Recommendation: - Discharge patient to home. - Resume previous diet. - Continue present medications. - Await pathology results. Procedure Code(s): --- Professional --- 53972, Small intestinal endoscopy, enteroscopy beyond second portion of duodenum, not including ileum; with biopsy, single or multiple CPT copyright 2021 [employer] [place] [employer]. All rights reserved. The codes documented in this report are preliminary and upon patternmaker review may be revised to meet current compliance requirements. Robinosn Currie DO 04/28/2025 1:05:22 PM This report has been signed electronically. Number of Addenda: 0 Note Initiated On: 04/28/2025 12:45 PM
--- NOTE | 2025-04-28 13:05 | OP.PROVAT_ITS ---
04/28/2025 Cathy Gonzalez Re : Upper GI endoscopy procedure for Zion Jose L Dear Carlos This procedure was performed on Monday, April 28, 2025. My impressions and recommendations are as follows: Impressions : - LA Grade A reflux esophagitis with no bleeding. Biopsied. - Erythematous mucosa in the gastric body. Biopsied. - Erythematous duodenopathy. Biopsied. Recommendations : - Discharge patient to home. - Resume previous diet. - Continue present medications. - Await pathology results. My findings are described in the full procedure note, which is enclosed. If I can be of further assistance, please feel free to contact me at . Sincerely, Robinson Currie, 04/28/2025 1:05:22 PM This report has been signed electronically.
--- NOTE | 2025-04-28 13:13 | PCM.POST.ANE ---
Anesthesia: Postop Eval I Current Vital Signs Temperature: 97.2 F Pulse Rate: 92 Blood Pressure: 115/82 Respiratory Rate: 16 Pulse Ox: 97 Oxygen Delivery Method: Room Air Assessment Airway patent: Yes Spontaneous unlabored respirations: Yes Mental status: Asleep nausea: No Vomiting: No Anesthesia Complication: No Fluid Hydration Crystalloid volume administer (ml): 400 Total IV fluid infused: 400 Progress Note Anesthesia document: Postop Eval 1 completed: Yes
--- NOTE | 2025-04-28 15:26 | PCM.POSTANE2 ---
Anesthesia Postop Eval I Sum Postop Eval Completion status Anesthesia document: Postop Eval 1 completed: Yes Anesthesia Postop Eval I Summary Anesthesia Postop Eval I Summary: Anesthesia Postop Eval I: Assessment Summary Airway patent Yes 04/28/25 13:14 [email or web address] Spontaneous unlabored Yes 04/28/25 13:14 [email or web address] respirations Mental status Asleep 04/28/25 13:14 [email or web address] nausea No 04/28/25 13:14 [email or web address] Vomiting No 04/28/25 13:14 [email or web address] Anesthesia Postop Eval I: Fluid Summary Crystalloid volume administer 400 04/28/25 13:14 [email or web address] (ml) Colloids volume administered ( ml) Blood Product volume administered (ml) Total IV fluid infused 400 04/28/25 13:14 [email or web address] Anesthesia Postop Eval I: Summary Notes Anesthesia Complication No 04/28/25 13:14 [email or web address] Anesthesia Complication Comment: Post-operative progress note Anesthesia: Postop Eval II Evaluation Mental status: Awake and Calm Pain Level: 1 nausea: No Vomiting: No Complications Anesthesia Complication: No
== END 2025-04-28 13:50 | disposition home or self-care (01) ==
LOC: EN 10:55 → AC 10:56
PROVIDERS: PCP Family Medicine; Referring Provider Family Medicine; Visit Provider Internal Medicine Gastroenterology
PROC: 0DJ08ZZ Inspection of Upper Intestinal Tract, Via Natural or Artificial Opening Endoscopic (ICD-10-PCS; CPT 43235; principal; 2025-04-28 11:55)
DX: K21.00 Gastro-esophageal reflux disease with esophagitis, without bleeding (principal); K76.6 Portal hypertension; K57.30 Diverticulosis of large intestine without perforation or abscess without bleeding; F32.A Depression, unspecified; Z79.899 Other long term (current) drug therapy; K75.3 Granulomatous hepatitis, not elsewhere classified
CPT/HCPCS: 44361; 88305; J2405